=== PATIENT | male | born 1975 | race Caucasian/White ===

== ENCOUNTER → 2020-01-17 10:49 | Outpatient (REF) | payer BC, SELFPAY | LOC: ANHLAB 10:49 | PROVIDERS: Visit Provider Nurse Practitioner | DX: D49.2 Neoplasm of unspecified behavior of bone, soft tissue, and skin (principal) | CPT/HCPCS: 88305 ==

== ENCOUNTER 2021-08-24 12:46 | Emergency (ER) | payer BC, SELFPAY ==
[2021-08-24 13:02] VITALS: BP 165/99; PULSE 73; RESP 18; TEMP 36.8; O2SAT 100
--- NOTE | 2021-08-24 13:21 | ED.GENADULT ---
HPI - General Adult General Chief complaint: Back Pain/Injury Stated complaint: back pain Source: patient Mode of arrival: ambulatory Limitations: no limitations History of Present Illness HPI narrative: Patient is a 46 male who presents to the [facility] via POV for evaluation of an exacerbation of chronic low back pain. Pain was exacerbated on August 18. 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 Pain radiates down right buttock to right thigh and right calf. Ibuprofen has provided relief although pain has returned without relief. Last dose of ibuprofen was 200 mg at 1030. He also reports taking 400 mg at 0130 and 0530 and 200 mg at 0830. Advil does not provide any relief. Pain worsens with standing up and walking. He had a massage this morning that he believes provided some relief although states, I could barely stand up after the massage . Related Data Home Medications Medication Instructions Recorded Confirmed ezetimibe 10 mg DAILY 08/24/21 08/24/21 Allergies Allergy/AdvReac Type Severity Reaction Status Date / Time pollen extracts Allergy Unknown Verified 08/24/21 13:14 Review of Systems Review of Systems: Denies fever, chills, sweats, weight loss, headaches, nausea, vomiting, diarrhea, abdominal pain, bladder/bowel incontinence, injury, paresthesias, weakness, urinary retention, perianal sensory loss. Patient denies history of IV drug use, steroid use, and cancer. [facility] Past Medical History Medical History (Updated 08/24/21 @ 14:01 by DEBO Schwartz, ) Skin neoplasm Family History Family History Grandparent Diabetes mellitus Family history of cardiovascular disease Carcinoma of colon Family history of Alzheimer's disease Social History Social History Smoking status: Never smoker Alcohol intake: never Substance use: never Comments I have reviewed and agree with the patient's past medical, surgical, social, and family hx as documented by the RN. There is no relevant family history pertinent to the presenting complaint. Exam Narrative: GENERAL: Well-appearing, well-nourished, and in no acute distress. Patient appears to be in moderate pain. HEAD: Normocephalic, atraumatic. NECK: Supple. No lymphadenopathy or nuchal rigidity. No evidence of pain, decreased ROM, or deformity. CHEST: Lung sounds are clear to auscultation in bilateral lung oakley. No respiratory distress. HEART: Regular rate and rhythm. No murmur heard. Normal peripheral pulses. ABDOMEN: Soft, nontender, nondistended, normal active bowel sounds in all quadrants. No guarding. No rebound tenderness. No pulsatile or palpable abdominal mass(es). No CVAT EXTREMITIES: Normal range of motion. No edema. BACK: Full ROM. No evidence of deformity, mass, spinal tenderness, or swelling. Moderate spam noted to left latissimus dorsi. Left SLR test positive at 30 degrees. Slowed gait. Ambulates hunched over. SKIN: Warm, dry, no rash. No skin color changes. Excellent turgor. NEURO: No focal deficits. Alert and oriented x3. Course Course Emergency Course: NSAID discussion: NSAIDs such as ibuprofen may cause ulcers, bleeding, or holes in the stomach or intestines. These problems may develop at any time during treatment, may happen without warning symptoms, and cause . The risk may be higher people who take NSAIDs for a long time, are older in age, have poor health, or who drink 3 or more alcoholic drinks per day while taking ibuprofen. Level of Care: Express Care Visit Vital Signs Vital signs: Vital Signs Temperature 98.2 F 08/24/21 13:02 Pulse Rate 73 08/24/21 13:02 Respiratory Rate 18 08/24/21 13:02 Blood Pressure 165/99 H 08/24/21 13:02 Pulse Oximetry 100 08/24/21 13:02 Temperature 98.2 F 08/24/21 13:02 Pulse Rate 73 08/24
[2021-08-24] MEDS: KETOROLAC (*BKC) 60 MG/2 ML VIAL IM (13:37)
== END 2021-08-24 14:06 | disposition home or self-care (01) ==
PROVIDERS: Emergency Provider Nurse Practitioner Family; PCP Nurse Practitioner Family
DX: M62.830 Muscle spasm of back (principal); M54.31 Sciatica, right side; Z85.828 Personal history of other malignant neoplasm of skin
CPT/HCPCS: 96372; 99213; G0463; J1885